=== PATIENT | female | born 1985 | race Caucasian/White ===

== ENCOUNTER 2017-04-23 22:17 | Emergency (ER) | payer MEDICAID ==
[~2017-04-23] VITALS: Ht 142.2 cm; Wt 63.5 kg
[~2017-04-23 22:17] MED LIST: ALPR0.25; PRO10T; SERT25TA84; [UNRECOGNIZED DRUG - CODE]
[2017-04-23] MEDS ORDERED: ONDANSETRON HCL 4 MG/2 ML VIAL IV ONE (22:30)
[2017-04-23] MEDS ORDERED: SODIUM CHLORIDE 0.9% 1,000 ML IV ONE ×2 (22:30→22:37)
[2017-04-23 22:55] LABS: Basophils # (auto) 0 uL; Basophils % (auto) 0.3 % (0.0-2.0); Eosinophils # (auto) 0 uL; Hematocrit 43.3 % (36.0-46.0); Hemoglobin 14.9 g/dL (12.2-16.2); Lymphocytes # (auto) 1.1 uL; Lymphocytes % (auto) 11.2 % (10.0-50.0); Mean Corpuscular Hemoglobin 31.7 pg (28.0-32.0); Mean Corpuscular Hgb Conc. 34.4 g/dL (32.0-36.0); Mean Corpuscular Volume 91.9 fL (80.0-100.0); Monocytes # (auto) 0.2 uL; Monocytes % (auto) 2.2 % (0.0-12.0); Neutrophils # (auto) 8.8 uL; Neutrophils % (auto) 86.3 % (37.0-80.0); Platelet Count (auto) 274 10^3/uL (140-450); Red Blood Cells 4.71 10^6/uL (4.0-5.20); Red Cell Distribution Width 13.9 % (11.8-14.3); White Blood Cell 10.2 10^3/uL (4.4-10.8)
[2017-04-23 23:12] LABS: Albumin 4.7 g/dL (3.4-5.0); BUN/Creatinine Ratio 23.8; Calcium 9.3 mg/dL (8.5-10.1); Magnesium 1.9 mg/dL (1.6-2.6); Potassium 3.5 mmol/L (3.5-5.1)
[2017-04-23 23:14] LABS: Bilirubin, Total 0.2 mg/dL (0.2-1.0); Total Protein 9.2 g/dL (6.4-8.2)
[2017-04-23] MEDS ORDERED: HYDROmorphone HCL 2 MG/ML VL IV ONE (23:30)
[2017-04-24 00:01] LABS: Urine Bacteria NONE SEEN /hpf (None Seen); Urine Blood Negative /uL (Negative); Urine Mucus FEW (None Seen); Urine Specific Gravity 1.009 (1.001-1.035); Urine WBC 2 /hpf (0 - 5)
[2017-04-24 00:22] LABS: Alcohol, Urine < 3.0 mg/dL (0-5); Amphetamine Screen, Urine NEGATIVE (NEGATIVE); Barbiturate Scree,Urine NEGATIVE (NEGATIVE); Benzodiazephine Screen, Urine NEGATIVE (NEGATIVE); Cannabinoid Screen, Urine POSITIVE (NEGATIVE); Cocaine Screen, Urine NEGATIVE (NEGATIVE); Opiate Scree,Urine NEGATIVE (NEGATIVE); Phencyclidine Screen, Urine NEGATIVE (NEGATIVE)
[2017-04-24 00:30] VITALS: BP 103/58
== END 2017-04-24 01:06 | disposition home or self-care (01) ==
LOC: ER 22:17
DX: R11.2 Nausea with vomiting, unspecified (principal); F17.210 Nicotine dependence, cigarettes, uncomplicated; Z88.0 Allergy status to penicillin; Z79.899 Other long term (current) drug therapy
CPT/HCPCS: 36415; 74176; 80053; 80307; 81001; 83735; 84702; 85025; 96361; 96374; 96375; 99285; J1170; J2405; J7030

== ENCOUNTER 2017-07-24 13:38 | Emergency (ER) | payer MEDICAID ==
[~2017-07-24] VITALS: Ht 142.2 cm; Wt 59.0 kg
[2017-07-24 15:01] LABS: Basophils # (auto) 0 uL; Basophils % (auto) 0.1 % (0.0-2.0); Eosinophils # (auto) 0 uL; Hematocrit 45.3 % (36.0-46.0); Hemoglobin 14.9 g/dL (12.2-16.2); Lymphocytes # (auto) 1.4 uL; Lymphocytes % (auto) 10.5 % (10.0-50.0); Mean Corpuscular Hemoglobin 31.4 pg (28.0-32.0); Mean Corpuscular Hgb Conc. 32.8 g/dL (32.0-36.0); Mean Corpuscular Volume 95.7 fL (80.0-100.0); Monocytes # (auto) 0.3 uL; Monocytes % (auto) 2.7 % (0.0-12.0); Neutrophils # (auto) 11.2 uL; Neutrophils % (auto) 86.7 % (37.0-80.0); Nucleated Red Blood Cells % 0.1 %; Platelet Count (auto) 237 10^3/uL (140-450); Red Blood Cells 4.73 10^6/uL (4.0-5.20); Red Cell Distribution Width 14.9 % (11.8-14.3)
[2017-07-24 15:26] LABS: Alanine Aminotransferase 23 U/L (13-56); Albumin 4.3 g/dL (3.4-5.0); Alkaline Phosphatase 51 U/L (45-117); Amylase 39 U/L (25-115); Anion Gap 11 (5-15); Aspartate Aminotransferase 27 U/L (15-37); BUN/Creatinine Ratio 25.4; Bilirubin, Total 0.3 mg/dL (0.2-1.0); Blood Urea Nitrogen 16 mg/dL (7-18); Calcium 8.8 mg/dL (8.5-10.1); Carbon Dioxide 17 mmol/L (21-32); Chloride 105 mmol/L (98-107); GFR African American 140 mL/min; GFR Non-African American 116 mL/min; Glucose 132 mg/dL (74-106); Lipase 113 U/L (73-393); Magnesium 2.1 mg/dL (1.6-2.6); Potassium 4.1 mmol/L (3.5-5.1); Sodium 133 mmol/L (136-145); Total Protein 8.5 g/dL (6.4-8.2)
[2017-07-24] MEDS ORDERED: PANTOPRAZOLE 40 MG/10 ML VIAL IV STA (15:49)
[2017-07-24] MEDS ORDERED: SODIUM CHLORIDE 0.9% 1,000 ML IVB ONE (15:49)
[2017-07-24] MEDS ORDERED: MORPHINE SULFATE 8mg/ml INJ SDV IV ONE (16:00)
[2017-07-24] MEDS ORDERED: PROCHLORPERAZINE EDISYLATE 5 MG/ML 2ML VIAL IV ONE (16:00)
[2017-07-24 16:22] VITALS: BP 157/97
[2017-07-24 16:57] LABS: Urine Amorphous Crystal FEW /hpf (None Seen); Urine Bacteria NONE SEEN /hpf (None Seen); Urine Blood TRACE /uL (Negative); Urine Mucus FEW (None Seen); Urine Specific Gravity 1.023 (1.001-1.035); Urine WBC 1 /hpf (0 - 5)
== END 2017-07-24 19:03 | disposition home or self-care (01) ==
LOC: ER 13:38
DX: R11.2 Nausea with vomiting, unspecified (principal); F12.10 Cannabis abuse, uncomplicated; E11.9 Type 2 diabetes mellitus without complications; F17.210 Nicotine dependence, cigarettes, uncomplicated; Z79.899 Other long term (current) drug therapy; Z88.0 Allergy status to penicillin
CPT/HCPCS: 36415; 80053; 81001; 81025; 82150; 83690; 83735; 84484; 85025; 93005; 94761; 96361; 96374; 96375; 99285; C9113; J0780; J2270; J7030

== ENCOUNTER 2017-07-28 03:58 | Emergency (ER) | payer MEDICAID ==
[~2017-07-28] VITALS: Ht 142.2 cm; Wt 61.2 kg
[2017-07-28 04:58] LABS: Urine Bacteria NONE SEEN /hpf (None Seen); Urine Blood Negative /uL (Negative); Urine Specific Gravity 1.013 (1.001-1.035); Urine WBC 2 /hpf (0 - 5)
[2017-07-28 06:59] LABS: Basophils # (auto) 0 uL; Basophils % (auto) 0.1 % (0.0-2.0); Eosinophils # (auto) 0 uL; Hematocrit 45.7 % (36.0-46.0); Hemoglobin 15.6 g/dL (12.2-16.2); Lymphocytes # (auto) 1.3 uL; Lymphocytes % (auto) 10.8 % (10.0-50.0); Mean Corpuscular Hgb Conc. 34.1 g/dL (32.0-36.0); Mean Corpuscular Volume 93.6 fL (80.0-100.0); Monocytes # (auto) 0.4 uL; Monocytes % (auto) 3.2 % (0.0-12.0); Neutrophils # (auto) 10.6 uL; Neutrophils % (auto) 85.9 % (37.0-80.0); Platelet Count (auto) 312 10^3/uL (140-450); Red Blood Cells 4.89 10^6/uL (4.0-5.20); Red Cell Distribution Width 14.2 % (11.8-14.3); White Blood Cell 12.3 10^3/uL (4.4-10.8)
[2017-07-28 07:21] LABS: Albumin 4.5 g/dL (3.4-5.0); Anion Gap 11 (5-15); Blood Urea Nitrogen 9 mg/dL (7-18); Calcium 8.9 mg/dL (8.5-10.1); Carbon Dioxide 21 mmol/L (21-32); Chloride 100 mmol/L (98-107); Glucose 133 mg/dL (74-106); Lipase 229 U/L (73-393); Potassium 3.3 mmol/L (3.5-5.1); Sodium 132 mmol/L (136-145)
[2017-07-28 07:23] LABS: Alanine Aminotransferase 42 U/L (13-56); Amylase 55 U/L (25-115); Aspartate Aminotransferase 31 U/L (15-37); BUN/Creatinine Ratio 15.5; GFR African American 154 mL/min; GFR Non-African American 127 mL/min
[2017-07-28 07:29] LABS: Alkaline Phosphatase 55 U/L (45-117); Bilirubin, Total 0.4 mg/dL (0.2-1.0)
[2017-07-28] MEDS ORDERED: SODIUM CHLORIDE 0.9% 1,000 ML IV ONE (07:39)
[2017-07-28] MEDS ORDERED: POTASSIUM CHL 10% (20 MEQ/15ML) 15ml ORAL SOLN PO ONE (07:45)
[2017-07-28] MEDS ORDERED: PROMETHAZINE HCL 25 MG/ML 1ML IV ONE (08:00)
[2017-07-28 08:50] VITALS: BP 152/82
== END 2017-07-28 08:55 | disposition home or self-care (01) ==
LOC: ER 04:02
DX: E87.6 Hypokalemia (principal); K59.00 Constipation, unspecified; F12.10 Cannabis abuse, uncomplicated; E11.9 Type 2 diabetes mellitus without complications; F17.210 Nicotine dependence, cigarettes, uncomplicated; Z88.1 Allergy status to other antibiotic agents
CPT/HCPCS: 36415; 74176; 80053; 81001; 81025; 82150; 83690; 84484; 85025; 93005; 96361; 96374; 99285; J2550; J7030

== ENCOUNTER 2018-06-14 07:39 | Emergency (ER) | payer MEDICAID ==
[~2018-06-14] VITALS: Ht 172.7 cm; Wt 55.3 kg
[2018-06-14 08:49] LABS: Basophils # (auto) 0.1 uL; Basophils % (auto) 0.5 % (0.0-2.0); Eosinophils # (auto) 0.1 uL; Eosinophils % (auto) 0.6 % (0.0-7.0); Hematocrit 46.1 % (36.0-46.0); Hemoglobin 15.6 g/dL (12.2-16.2); Lymphocytes # (auto) 2.2 uL; Lymphocytes % (auto) 14.9 % (10.0-50.0); Mean Corpuscular Hemoglobin 30.9 pg (28.0-32.0); Mean Corpuscular Hgb Conc. 33.9 g/dL (32.0-36.0); Mean Corpuscular Volume 91.1 fL (80.0-100.0); Monocytes # (auto) 1.1 uL; Monocytes % (auto) 7.7 % (0.0-12.0); Neutrophils # (auto) 11.1 uL; Neutrophils % (auto) 76.3 % (37.0-80.0); Platelet Count (auto) 317 10^3/uL (140-450); Red Blood Cells 5.06 10^6/uL (4.0-5.20); Red Cell Distribution Width 14.4 % (11.8-14.3); White Blood Cell 14.6 10^3/uL (4.4-10.8)
[2018-06-14 09:00] LABS: Urine Bacteria NONE SEEN /hpf (None Seen); Urine Blood Negative /uL (Negative); Urine Mucus FEW (None Seen); Urine WBC 3 /hpf (0 - 5)
[2018-06-14] MEDS ORDERED: SODIUM CHLORIDE 0.9% 1,000 ML IVB ONE (09:01)
[2018-06-14 09:12] LABS: Albumin 4.6 g/dL (3.4-5.0); BUN/Creatinine Ratio 25.7; Calcium 9.6 mg/dL (8.5-10.1); Potassium 3.3 mmol/L (3.5-5.1)
[2018-06-14 09:15] LABS: Bilirubin, Total 0.4 mg/dL (0.2-1.0)
[2018-06-14] MEDS ORDERED: ONDANSETRON HCL 4 MG/2 ML VIAL IV ONE (09:15)
[2018-06-14] MEDS ORDERED: KETOROLAC TROMETH 30 MG/ML 1ML VIAL IV ONE (09:15)
[2018-06-14] MEDS ORDERED: cefTRIAXone 1GM/50ML D5W 50 ML IV ONE (12:00)
[2018-06-14 12:36] VITALS: BP 115/65
== END 2018-06-14 13:23 | disposition home or self-care (01) ==
LOC: ER 07:39
DX: N39.0 Urinary tract infection, site not specified (principal); R11.2 Nausea with vomiting, unspecified; E11.9 Type 2 diabetes mellitus without complications; F17.210 Nicotine dependence, cigarettes, uncomplicated; F12.90 Cannabis use, unspecified, uncomplicated
CPT/HCPCS: 36415; 80053; 81001; 81025; 82962; 85025; 94761; 96361; 96374; 96375; 99283; J0696; J1885; J2405; J7030

== ENCOUNTER 2018-06-18 23:45 | Emergency (ER) | payer MEDICAID ==
[~2018-06-18] VITALS: Ht 142.2 cm; Wt 55.3 kg
[2018-06-19] MEDS ORDERED: PROMETHAZINE HCL 25 MG/ML 1ML ONE (00:13)
[2018-06-19] MEDS ORDERED: PROMETHAZINE HCL 25 MG/ML 1ML IV ONE (00:30)
[2018-06-19] MEDS ORDERED: SODIUM CHLORIDE 0.9% 1,000 ML IV ONE (00:30)
[2018-06-19 00:54] LABS: Basophils # (auto) 0 uL; Basophils % (auto) 0.2 % (0.0-2.0); Eosinophils # (auto) 0 uL; Eosinophils % (auto) 0.1 % (0.0-7.0); Hematocrit 46.8 % (36.0-46.0); Hemoglobin 15.8 g/dL (12.2-16.2); Lymphocytes # (auto) 1.4 uL; Mean Corpuscular Hemoglobin 31.1 pg (28.0-32.0); Mean Corpuscular Hgb Conc. 33.7 g/dL (32.0-36.0); Mean Corpuscular Volume 92.2 fL (80.0-100.0); Monocytes # (auto) 0.1 uL; Monocytes % (auto) 0.8 % (0.0-12.0); Neutrophils # (auto) 14.1 uL; Neutrophils % (auto) 89.9 % (37.0-80.0); Nucleated Red Blood Cells % 0.1 %; Platelet Count (auto) 268 10^3/uL (140-450); Red Blood Cells 5.07 10^6/uL (4.0-5.20); Red Cell Distribution Width 13.9 % (11.8-14.3); White Blood Cell 15.7 10^3/uL (4.4-10.8)
[2018-06-19 01:07] LABS: Albumin 4.2 g/dL (3.4-5.0); Amylase 55 U/L (25-115); Anion Gap 10 (5-15); BUN/Creatinine Ratio 12.6; Blood Urea Nitrogen 11 mg/dL (7-18); Calcium 9.1 mg/dL (8.5-10.1); Carbon Dioxide 21 mmol/L (21-32); Chloride 105 mmol/L (98-107); GFR African American 96 mL/min; GFR Non-African American 79 mL/min; Glucose 128 mg/dL (74-106); Lipase 173 U/L (73-393); Potassium 3.1 mmol/L (3.5-5.1); Sodium 136 mmol/L (136-145)
[2018-06-19 01:10] LABS: Alanine Aminotransferase 28 U/L (13-56); Alkaline Phosphatase 62 U/L (45-117); Aspartate Aminotransferase 23 U/L (15-37); Bilirubin, Total 0.3 mg/dL (0.2-1.0); Total Protein 8.5 g/dL (6.4-8.2)
[2018-06-19 01:40] LABS: Urine Bacteria NONE SEEN /hpf (None Seen); Urine Blood 2+ /uL (Negative); Urine Specific Gravity 1.016 (1.001-1.035); Urine WBC 4 /hpf (0 - 5)
[2018-06-19] MEDS ORDERED: MORPHINE SULF INJ 2 MG/ML SYRINGE 1ML IV ONE (02:00)
[2018-06-19] MEDS ORDERED: MAGNESIUM CITRATE SOLUTION 300 ML BTL PO ONE (03:30)
[2018-06-19] MEDS ORDERED: LACTULOSE 20Gm/30ML SOLN PO ONE (03:30)
[2018-06-19] MEDS ORDERED: FAMOTIDINE (10MG/ML) 2ML VL IV ONE (04:30)
[2018-06-19] MEDS ORDERED: ALUM & MAG HYDROX-SIMETH LIQ(MAALOX) 30 ML ONE (05:24)
[2018-06-19] MEDS ORDERED: LIDOCAINE VISCOUS 2% 15ML UD ONE (05:24)
[2018-06-19 05:25] VITALS: BP 131/79
[2018-06-19] MEDS ORDERED: ALUM & MAG HYDROX-SIMETH LIQ(MAALOX) 30 ML PO ONE (05:45)
[2018-06-19] MEDS ORDERED: LIDOCAINE VISCOUS 2% 15ML UD PO ONE (05:45)
== END 2018-06-19 05:35 | disposition home or self-care (01) ==
LOC: ER 23:57
DX: R10.84 Generalized abdominal pain (principal); K56.41 Fecal impaction; F17.210 Nicotine dependence, cigarettes, uncomplicated; F12.10 Cannabis abuse, uncomplicated; Z88.1 Allergy status to other antibiotic agents
CPT/HCPCS: 36415; 74176; 80053; 81001; 82150; 83690; 85025; 96361; 96374; 96375; 99284; J2270; J2550; J3490

== ENCOUNTER 2018-12-17 14:01 | Emergency (ER) | payer MEDICAID ==
[~2018-12-17] VITALS: Ht 142.2 cm; Wt 59.0 kg
[2018-12-17] MEDS ORDERED: SODIUM CHLORIDE 0.9% 1,000 ML IV ONE (14:44)
[2018-12-17 14:54] LABS: Basophils # (auto) 0 uL; Basophils % (auto) 0.1 % (0.0-2.0); Eosinophils # (auto) 0 uL; Hematocrit 44.1 % (36.0-46.0); Hemoglobin 14.9 g/dL (12.2-16.2); Lymphocytes # (auto) 1.3 uL; Mean Corpuscular Hemoglobin 31.6 pg (28.0-32.0); Mean Corpuscular Hgb Conc. 33.8 g/dL (32.0-36.0); Mean Corpuscular Volume 93.5 fL (80.0-100.0); Monocytes # (auto) 0.3 uL; Monocytes % (auto) 2.1 % (0.0-12.0); Neutrophils # (auto) 11.6 uL; Neutrophils % (auto) 87.8 % (37.0-80.0); Platelet Count (auto) 321 10^3/uL (140-450); Red Blood Cells 4.72 10^6/uL (4.0-5.20); Red Cell Distribution Width 14.2 % (11.8-14.3); White Blood Cell 13.2 10^3/uL (4.4-10.8)
[2018-12-17] MEDS ORDERED: PROCHLORPERAZINE EDISYLATE 5 MG/ML 2ML VIAL IV ONE (15:00)
[2018-12-17] MEDS ORDERED: MORPHINE SULFATE 4 MG/ML SYR/VIAL IV ONE (15:00)
[2018-12-17 15:10] LABS: Urine Bacteria NONE SEEN /hpf (None Seen); Urine Blood Negative /uL (Negative); Urine Specific Gravity 1.016 (1.001-1.035); Urine WBC <1 /hpf (0 - 5)
[2018-12-17 15:16] LABS: Albumin 4.6 g/dL (3.4-5.0); BUN/Creatinine Ratio 17.6; Calcium 9.2 mg/dL (8.5-10.1); Potassium 3.8 mmol/L (3.5-5.1)
[2018-12-17 15:18] LABS: Bilirubin, Total 0.3 mg/dL (0.2-1.0); Total Protein 8.9 g/dL (6.4-8.2)
[2018-12-17 15:40] LABS: Amylase 50 U/L (25-115); Lipase 92 U/L (73-393)
[2018-12-17] MEDS ORDERED: DONNATAL 5ml ORAL Elix (BELLADONNA ALK-PHENOBARB) PO ONE (18:00)
[2018-12-17] MEDS ORDERED: LIDOCAINE VISCOUS 2% 15ML UD PO ONE (18:00)
[2018-12-17] MEDS ORDERED: ALUM & MAG HYDROX-SIMETH LIQ(MAALOX) 30 ML PO ONE (18:00)
[2018-12-17 19:10] VITALS: BP 146/83
[2018-12-17 19:12] LABS: Alcohol, Urine < 3.0 mg/dL (0-5); Amphetamine Screen, Urine NEGATIVE (NEGATIVE); Barbiturate Scree,Urine NEGATIVE (NEGATIVE); Benzodiazephine Screen, Urine NEGATIVE (NEGATIVE); Cannabinoid Screen, Urine POSITIVE (NEGATIVE); Cocaine Screen, Urine NEGATIVE (NEGATIVE); Opiate Scree,Urine NEGATIVE (NEGATIVE); Phencyclidine Screen, Urine NEGATIVE (NEGATIVE)
[2018-12-19] MEDS ORDERED: ONDA-144 PO (16:21)
[2018-12-21] MEDS ORDERED: PANT40T PO (14:40)
== END 2018-12-17 19:17 | disposition home or self-care (01) ==
LOC: ER 14:01
DX: N39.0 Urinary tract infection, site not specified (principal); E86.0 Dehydration; F12.10 Cannabis abuse, uncomplicated; F17.210 Nicotine dependence, cigarettes, uncomplicated; E11.9 Type 2 diabetes mellitus without complications; Z87.11 Personal history of peptic ulcer disease; Z98.51 Tubal ligation status
CPT/HCPCS: 36415; 74176; 80053; 80307; 81001; 81025; 82150; 83690; 85025; 96361; 96374; 96375; 99284; J0780; J2270; J7030